=== PATIENT | female | born 1990 | race Caucasian/White ===

== ENCOUNTER 2023-12-28 18:35 | Emergency (ER) | payer BC, SELFPAY ==
[2023-12-28 18:47] VITALS: BP 121/73; PULSE 94; RESP 18; TEMP 37.1; O2SAT 97; BMI 35.8
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
== END 2023-12-28 22:16 | disposition home or self-care (01) ==
PROVIDERS: Emergency Provider Family Medicine
DX: S81.011A Laceration without foreign body, right knee, initial encounter (principal); W18.09XA Striking against other object with subsequent fall, initial encounter; Y93.55 Activity, bike riding
CPT/HCPCS: 12002; 99283; 99284